=== PATIENT | male | born 1960 | race Caucasian/White ===

== ENCOUNTER 2021-05-15 14:45 | Inpatient (IN) | payer OTHER ==
[2021-05-15 15:56] VITALS: BMI 41.8
[2021-05-15] MEDS ORDERED: MAGNESIUM HYDROX 2400MG/30ML ORAL SUSPENSION 30 ML CUP PO PRN (18:58)
[2021-05-15] MEDS ORDERED: NICOTINE POLACRILEX 2 MG GUM BUC PRN (18:58)
[2021-05-15] MEDS ORDERED: MENTHOL/PHENOL 1 EACH UD MM PRN (18:58)
[2021-05-15] MEDS ORDERED: MAG HYDROX/AL HYDROX/SIMETH 30 ML UNIT-DOSE CUP PO PRN (18:58)
[2021-05-15] MEDS ORDERED: IBUPROFEN 400 MG TABLET (FP) PO PRN (18:58)
[2021-05-15] MEDS ORDERED: cloNIDine HCL 0.1 MG TABLET PO PRN (18:58)
[2021-05-15] MEDS ORDERED: ONDANSETRON *ODT* 4 MG TABLET SL PRN (18:58)
[2021-05-15] MEDS ORDERED: BISMUTH SUBSALICYLATE 524 MG/30 ML PO PRN (18:58)
[2021-05-15] MEDS ORDERED: MAGNESIUM CITRATE 300 ML BOTTLE PO PRN (18:58)
[2021-05-15] MEDS ORDERED: ACETAMINOPHEN 325 MG TABLET (FP) PO PRN ×2 (18:58)
[2021-05-15] MEDS ORDERED: methaDONE HCL 10 MG TABLET (FOR DETOX USE ONLY) PO ONE (20:15)
[2021-05-15] MEDS: THIAMINE HCL 100 MG TABLET (FP) PO SCH (21:14)
[2021-05-15] MEDS: MELATONIN 5 MG TABLETS PO SCH (21:14)
[2021-05-15] MEDS: ATORVASTATIN CA 20 MG TABLET (FP) PO SCH (21:14)
[2021-05-15] MEDS: hydrOXYzine PAMOATE 25 MG CAPSULE (FP) PO SCH (21:14)
[2021-05-16] MEDS: hydrOXYzine PAMOATE 25 MG CAPSULE (FP) PO SCH ×2 (06:31→11:20)
[2021-05-16] MEDS: LEVOTHYROXINE NA 112 MCG TABLET (FP) PO SCH (06:32)
[2021-05-16] MEDS ORDERED: methaDONE HCL 10 MG TABLET (FOR DETOX USE ONLY) ONE (09:24)
[2021-05-16] MEDS ORDERED: glipiZIDE 10 MG TABLET (FP) PO ONE (10:38)
[2021-05-16] MEDS: PRENATAL VITAMINS W/ FOLIC ACID TABLET (FP) PO SCH (10:44)
[2021-05-16] MEDS: LOSARTAN POTASSIUM 50 MG TABLET PO SCH (10:45)
[2021-05-16] MEDS: amLODIPine BESYLATE 10 MG TABLET (FP) PO SCH (10:45)
[2021-05-16] MEDS: ATENOLOL 50 MG TABLET (FP) PO SCH (10:45)
[2021-05-16] MEDS: glipiZIDE-XL 10 MG TAB.ER.24 (FP) PO SCH ×2 (11:20→13:15)
[2021-05-16 13:32] LABS: HEMATOCRIT 42.9 % (35.4-49); HEMOGLOBIN 14.6 GM/dL (11.7-16.9); MCH 31.1 pg (25.7-33.7); MCHC 34.1 g/dl (32.0-35.9); MEAN CELL VOLUME 91.3 fl (80-96); PLATELET COUNT 230 10^3/uL (134-434); RBC 4.69 M/mm3 (4.00-5.60); RDW 13.1 % (11.9-15.9)
[2021-05-16 13:35] LABS: CALCIUM 9.3 mg/dL (8.5-10.1)
[2021-05-16 13:36] LABS: ALBUMIN 3.6 g/dl (3.4-5.0); BLOOD UREA NITROGEN 14.8 mg/dL (7-18)
[2021-05-16 13:38] LABS: CREATININE 0.9 mg/dL (0.55-1.3)
[2021-05-16 13:39] LABS: BILIRUBIN,TOTAL 0.5 mg/dL (0.2-1)
[2021-05-16 13:40] LABS: TOT PROT 6.8 g/dl (6.4-8.2)
[2021-05-16] MEDS: glipiZIDE 10 MG TABLET (FP) PO SCH (17:50)
[2021-05-16] MEDS: THIAMINE HCL 100 MG TABLET (FP) PO SCH (22:42)
[2021-05-16] MEDS: ATORVASTATIN CA 20 MG TABLET (FP) PO SCH (22:42)
[2021-05-16] MEDS: MELATONIN 5 MG TABLETS PO SCH (22:42)
[2021-05-16] MEDS: METHOCARBAMOL 500 MG TABLET PO PRN (22:42)
[2021-05-16] MEDS: hydrOXYzine PAMOATE 25 MG CAPSULE (FP) PO PRN (22:42)
[2021-05-17] MEDS: LEVOTHYROXINE NA 112 MCG TABLET (FP) PO SCH (06:38)
[2021-05-17] MEDS: glipiZIDE 10 MG TABLET (FP) PO SCH ×2 (06:38→17:39)
[2021-05-17] MEDS ORDERED: methaDONE HCL 10 MG TABLET (FOR DETOX USE ONLY) PO ONE (10:00)
[2021-05-17] MEDS: amLODIPine BESYLATE 10 MG TABLET (FP) PO SCH (10:29)
[2021-05-17] MEDS: PRENATAL VITAMINS W/ FOLIC ACID TABLET (FP) PO SCH (10:29)
[2021-05-17] MEDS: LOSARTAN POTASSIUM 50 MG TABLET PO SCH (10:29)
[2021-05-17] MEDS: ATENOLOL 50 MG TABLET (FP) PO SCH (10:31)
[2021-05-17] MEDS: INSULIN SLIDING SCALE (NOVOLOG) 1 VIAL SQ SCH (17:41)
[2021-05-17] MEDS: MELATONIN 5 MG TABLETS PO SCH (22:04)
[2021-05-17] MEDS: ATORVASTATIN CA 20 MG TABLET (FP) PO SCH (22:04)
[2021-05-17] MEDS: THIAMINE HCL 100 MG TABLET (FP) PO SCH (22:04)
[2021-05-17] MEDS: hydrOXYzine PAMOATE 25 MG CAPSULE (FP) PO PRN (22:06)
[2021-05-18] MEDS: INSULIN SLIDING SCALE (NOVOLOG) 1 VIAL SQ SCH ×2 (06:43→17:34)
[2021-05-18] MEDS: LEVOTHYROXINE NA 112 MCG TABLET (FP) PO SCH (06:44)
[2021-05-18] MEDS: hydrOXYzine PAMOATE 25 MG CAPSULE (FP) PO PRN ×2 (06:44→23:17)
[2021-05-18] MEDS: glipiZIDE 10 MG TABLET (FP) PO SCH ×2 (06:44→17:34)
[2021-05-18] MEDS ORDERED: methaDONE HCL 10 MG TABLET (FOR DETOX USE ONLY) ONE (09:07)
[2021-05-18] MEDS: ATENOLOL 50 MG TABLET (FP) PO SCH (09:34)
[2021-05-18] MEDS: PRENATAL VITAMINS W/ FOLIC ACID TABLET (FP) PO SCH (09:34)
[2021-05-18] MEDS: LOSARTAN POTASSIUM 50 MG TABLET PO SCH (09:34)
[2021-05-18] MEDS: amLODIPine BESYLATE 10 MG TABLET (FP) PO SCH (09:34)
[2021-05-18] MEDS: METHOCARBAMOL 500 MG TABLET PO PRN (17:35)
[2021-05-18 21:28] VITALS: PULSE 77
[2021-05-18] MEDS: MELATONIN 5 MG TABLETS PO SCH (23:17)
[2021-05-18] MEDS: THIAMINE HCL 100 MG TABLET (FP) PO SCH (23:17)
[2021-05-18] MEDS: ATORVASTATIN CA 20 MG TABLET (FP) PO SCH (23:17)
[2021-05-19] MEDS: LEVOTHYROXINE NA 112 MCG TABLET (FP) PO SCH (06:32)
[2021-05-19] MEDS: glipiZIDE 10 MG TABLET (FP) PO SCH (06:33)
[2021-05-19] MEDS: INSULIN SLIDING SCALE (NOVOLOG) 1 VIAL SQ SCH (06:39)
[2021-05-19 08:56] VITALS: BP 147/95; TEMP 98
[2021-05-19] MEDS: LOSARTAN POTASSIUM 50 MG TABLET PO SCH (09:22)
[2021-05-19] MEDS: ATENOLOL 50 MG TABLET (FP) PO SCH (09:22)
[2021-05-19] MEDS: amLODIPine BESYLATE 10 MG TABLET (FP) PO SCH (09:22)
[2021-05-19] MEDS: PRENATAL VITAMINS W/ FOLIC ACID TABLET (FP) PO SCH (09:23)
[2021-05-19] MEDS ORDERED: methaDONE HCL 10 MG TABLET (FOR DETOX USE ONLY) PO ONE ×2 (10:00→10:20)
== END 2021-05-19 10:35 | disposition home or self-care (01) | DRG 773 ==
LOC: YASAS 14:45 → Y3N 19:27
PROVIDERS: ADMIT Allergy & Immunology; ATTEND Allergy & Immunology
PROC: HZ2ZZZZ Detoxification Services for Substance Abuse Treatment (ICD-10-PCS; principal; 2021-05-15)
DX: F11.23 Opioid dependence with withdrawal (principal); I10 Essential (primary) hypertension; E11.65 Type 2 diabetes mellitus with hyperglycemia; Z79.84 Long term (current) use of oral hypoglycemic drugs; E03.9 Hypothyroidism, unspecified; E66.01 Morbid (severe) obesity due to excess calories; Z68.41 Body mass index [BMI] 40.0-44.9, adult
CPT/HCPCS: 36415; 80053; 82962; 85027; 86780; 93005; 93010; C9803; J0735; U0003; U0005

== ENCOUNTER 2022-07-10 15:18 | Inpatient (IN) | payer OTHER ==
[2022-07-10] MEDS ORDERED: NALOXONE HCL 0.4 MG/ML VIAL IM PRN (21:18)
[2022-07-10] MEDS ORDERED: MAGNESIUM CITRATE 300 ML BOTTLE PO PRN (21:18)
[2022-07-10] MEDS ORDERED: MAGNESIUM HYDROX 2400MG/30ML ORAL SUSPENSION 30 ML CUP PO PRN (21:18)
[2022-07-10] MEDS ORDERED: BENZOCAINE/MENTHOL (CHLORASEPTIC ) LOZENGE MM PRN (21:18)
[2022-07-10] MEDS ORDERED: IBUPROFEN 400 MG TABLET (FP) PO PRN (21:18)
[2022-07-10] MEDS ORDERED: P-EPHED 60MG/TRIPROLIDI 2.5MG TABLET PO PRN (21:18)
[2022-07-10] MEDS ORDERED: BISMUTH SUBSALICYLATE 524 MG/30 ML PO PRN (21:18)
[2022-07-10] MEDS ORDERED: ACETAMINOPHEN 325 MG TABLET (FP) PO PRN ×2 (21:18)
[2022-07-10] MEDS ORDERED: methaDONE HCL 10 MG TABLET (FOR DETOX USE ONLY) PO ONE (21:18)
[2022-07-10] MEDS ORDERED: MAG HYDROX/AL HYDROX/SIMETH 30 ML UNIT-DOSE CUP PO PRN (21:18)
[2022-07-10] MEDS ORDERED: guaiFENesin 200 MG/10 ML 10 ML UNIT-DOSE CUPS PO PRN (21:18)
[2022-07-10] MEDS ORDERED: NALOXONE HCL (KLOXXADO) 8 MG SPRAY NS PRN (21:18)
[2022-07-10] MEDS ORDERED: DICYCLOMINE HCL 10 MG CAPSULE PO PRN (21:18)
[2022-07-10] MEDS ORDERED: LOPERAMIDE HCL 2 MG CAPSULE PO PRN (21:18)
[2022-07-10] MEDS ORDERED: IBUPROFEN 600 MG TABLET (FP) PO PRN (21:18)
[2022-07-10 21:54] VITALS: BMI 40.3
[2022-07-10] MEDS ORDERED: MELATONIN 5 MG TABLETS PO SCH (22:00)
[2022-07-10] MEDS ORDERED: methaDONE HCL 10 MG TABLET (FOR DETOX USE ONLY) ONE (23:21)
[2022-07-11] MEDS: THIAMINE HCL 100 MG TABLET (FP) PO SCH ×2 (01:21→22:32)
[2022-07-11] MEDS: METHOCARBAMOL 500 MG TABLET PO PRN (10:16)
[2022-07-11] MEDS: PRENATAL VITAMINS W/ FOLIC ACID TABLET (FP) PO SCH (10:16)
[2022-07-11] MEDS: cloNIDine HCL 0.1 MG TABLET PO PRN ×3 (10:17→22:36)
[2022-07-11 10:21] LABS: HEMATOCRIT 39.9 % (35.4-49); HEMOGLOBIN 14.1 GM/dL (11.7-16.9); MCH 32.1 pg (25.7-33.7); MCHC 35.3 g/dl (32.0-35.9); MEAN CELL VOLUME 90.8 fl (80-96); MEAN PLT VOLUME 7.7 fl (7.5-11.1); PLATELET COUNT 234 10^3/uL (134-434); RDW 13.3 % (11.9-15.9)
[2022-07-11] MEDS ORDERED: glipiZIDE-XL 10 MG TAB.ER.24 (FP) PO SCH (10:30)
[2022-07-11] MEDS ORDERED: glipiZIDE-XL 10 MG TAB.ER.24 (FP) PO ONE (12:00)
[2022-07-11] MEDS: LOSARTAN POTASSIUM 50 MG TABLET PO SCH (13:37)
[2022-07-11] MEDS: amLODIPine BESYLATE 10 MG TABLET (FP) PO SCH (13:37)
[2022-07-11] MEDS: LEVOTHYROXINE NA 112 MCG TABLET (FP) PO SCH (15:40)
[2022-07-11] MEDS: ATENOLOL 50 MG TABLET (FP) PO SCH (15:43)
[2022-07-11 21:31] LABS: CALCIUM 9.3 mg/dL (8.5-10.1)
[2022-07-11 21:32] LABS: ALBUMIN 3.8 g/dl (3.4-5.0); BLOOD UREA NITROGEN 12.4 mg/dL (7-18)
[2022-07-11 21:36] LABS: BILIRUBIN,TOTAL 0.6 mg/dL (0.2-1)
[2022-07-11 21:37] LABS: TOT PROT 6.9 g/dl (6.4-8.2)
[2022-07-11] MEDS: clonazePAM 0.5 MG ODT TABLETS SL PRN (22:36)
[2022-07-12] MEDS: LEVOTHYROXINE NA 112 MCG TABLET (FP) PO SCH (06:11)
[2022-07-12] MEDS: glipiZIDE-XL 10 MG TAB.ER.24 (FP) PO SCH (06:12)
[2022-07-12] MEDS: ATORVASTATIN CA 20 MG TABLET (FP) PO SCH (06:12)
[2022-07-12] MEDS ORDERED: methaDONE HCL 10 MG TABLET (FOR DETOX USE ONLY) PO ONE (10:00)
[2022-07-12] MEDS: METHOCARBAMOL 500 MG TABLET PO PRN (10:13)
[2022-07-12] MEDS: amLODIPine BESYLATE 10 MG TABLET (FP) PO SCH (10:13)
[2022-07-12] MEDS: PRENATAL VITAMINS W/ FOLIC ACID TABLET (FP) PO SCH (10:13)
[2022-07-12] MEDS: LOSARTAN POTASSIUM 50 MG TABLET PO SCH (10:13)
[2022-07-12] MEDS: ATENOLOL 50 MG TABLET (FP) PO SCH (10:14)
[2022-07-12] MEDS: clonazePAM 0.5 MG ODT TABLETS SL PRN (10:18)
[2022-07-12] MEDS: SUVOREXANT 10 MG TABLET PO PRN (22:11)
[2022-07-12] MEDS: cloNIDine HCL 0.1 MG TABLET PO PRN (22:11)
[2022-07-12] MEDS: THIAMINE HCL 100 MG TABLET (FP) PO SCH (22:11)
[2022-07-13] MEDS: LEVOTHYROXINE NA 112 MCG TABLET (FP) PO SCH (06:24)
[2022-07-13] MEDS: glipiZIDE-XL 10 MG TAB.ER.24 (FP) PO SCH (06:24)
[2022-07-13] MEDS: ATORVASTATIN CA 20 MG TABLET (FP) PO SCH (06:24)
[2022-07-13] MEDS: clonazePAM 0.5 MG ODT TABLETS SL PRN (10:13)
[2022-07-13] MEDS: amLODIPine BESYLATE 10 MG TABLET (FP) PO SCH (10:13)
[2022-07-13] MEDS: PRENATAL VITAMINS W/ FOLIC ACID TABLET (FP) PO SCH (10:13)
[2022-07-13] MEDS: ATENOLOL 50 MG TABLET (FP) PO SCH (10:13)
[2022-07-13] MEDS: METHOCARBAMOL 500 MG TABLET PO PRN (10:15)
[2022-07-13] MEDS: LOSARTAN POTASSIUM 50 MG TABLET PO SCH (11:50)
[2022-07-13] MEDS: THIAMINE HCL 100 MG TABLET (FP) PO SCH (22:28)
[2022-07-13] MEDS: SUVOREXANT 10 MG TABLET PO PRN (22:28)
[2022-07-14] MEDS: glipiZIDE-XL 10 MG TAB.ER.24 (FP) PO SCH (06:13)
[2022-07-14] MEDS: LEVOTHYROXINE NA 112 MCG TABLET (FP) PO SCH (06:13)
[2022-07-14] MEDS: ATORVASTATIN CA 20 MG TABLET (FP) PO SCH (06:13)
[2022-07-14] MEDS ORDERED: methaDONE HCL 10 MG TABLET (FOR DETOX USE ONLY) PO ONE (10:00)
[2022-07-14] MEDS: LOSARTAN POTASSIUM 50 MG TABLET PO SCH (10:11)
[2022-07-14] MEDS: ATENOLOL 50 MG TABLET (FP) PO SCH (10:11)
[2022-07-14] MEDS: PRENATAL VITAMINS W/ FOLIC ACID TABLET (FP) PO SCH (10:11)
[2022-07-14] MEDS: amLODIPine BESYLATE 10 MG TABLET (FP) PO SCH (10:11)
[2022-07-14 17:00] VITALS: RESP 18
[2022-07-14 19:31] LABS: EPI CELLS 15 /uL (0-25.1); HYALINE CASTS 9 /uL (0-3.1); PH,URINE 5.5 (5.0-8.0); URINE APPEARANCE TURBID; URINE BACTERIA 13 /uL (0-1359); URINE BILIRUBIN 1+ (NEGATIVE); URINE COLOR DK YELLOW; URINE GLUCOSE (UA) NEGATIVE (NEGATIVE); URINE KETONE TRACE (NEGATIVE); URINE LEUK ESTERASE NEGATIVE (NEGATIVE); URINE NITRITE NEGATIVE (NEGATIVE); URINE PROTEIN 1+ (NEGATIVE); URINE RBC 5 /uL (0-23.9); URINE UROBILINOGEN 0.2 mg/dL (0.2-1.0); URINE WBC 14 /uL (0-25.8)
[2022-07-14] MEDS: THIAMINE HCL 100 MG TABLET (FP) PO SCH (22:21)
[2022-07-14] MEDS: METHOCARBAMOL 500 MG TABLET PO PRN (22:21)
[2022-07-15 06:28] VITALS: TEMP 97.1
[2022-07-15] MEDS: ATORVASTATIN CA 20 MG TABLET (FP) PO SCH (06:48)
[2022-07-15] MEDS: glipiZIDE-XL 10 MG TAB.ER.24 (FP) PO SCH (06:48)
[2022-07-15] MEDS: LEVOTHYROXINE NA 112 MCG TABLET (FP) PO SCH (06:48)
[2022-07-15] MEDS: ATENOLOL 50 MG TABLET (FP) PO SCH (09:01)
[2022-07-15] MEDS: amLODIPine BESYLATE 10 MG TABLET (FP) PO SCH (09:02)
[2022-07-15] MEDS: PRENATAL VITAMINS W/ FOLIC ACID TABLET (FP) PO SCH (09:02)
[2022-07-15] MEDS: LOSARTAN POTASSIUM 50 MG TABLET PO SCH (09:02)
[2022-07-15 09:23] VITALS: BP 129/80; PULSE 73
== END 2022-07-15 09:35 | disposition home or self-care (01) | DRG 773 ==
LOC: YASAS 15:18 → Y6N 23:08
PROVIDERS: ADMIT Allergy & Immunology; ATTEND Surgery
PROC: HZ2ZZZZ Detoxification Services for Substance Abuse Treatment (ICD-10-PCS; principal; 2022-07-10)
DX: F11.23 Opioid dependence with withdrawal (principal); F19.280 Other psychoactive substance dependence with psychoactive substance-induced anxiety disorder; F19.282 Other psychoactive substance dependence with psychoactive substance-induced sleep disorder; I10 Essential (primary) hypertension; E78.5 Hyperlipidemia, unspecified; E03.9 Hypothyroidism, unspecified; E11.9 Type 2 diabetes mellitus without complications; Z79.84 Long term (current) use of oral hypoglycemic drugs; E66.01 Morbid (severe) obesity due to excess calories; Z68.41 Body mass index [BMI] 40.0-44.9, adult
CPT/HCPCS: 36415; 80053; 81003; 82962; 85027; 86780; C9803-CS; U0003; U0005

== ENCOUNTER 2022-08-28 11:25 | Inpatient (IN) | payer OTHER ==
[2022-08-28 12:12] VITALS: BMI 38.0
[2022-08-28] MEDS ORDERED: BENZOCAINE/MENTHOL (CHLORASEPTIC ) LOZENGE MM PRN (12:34)
[2022-08-28] MEDS ORDERED: MAGNESIUM HYDROX 2400MG/30ML ORAL SUSPENSION 30 ML CUP PO PRN (12:34)
[2022-08-28] MEDS ORDERED: IBUPROFEN 600 MG TABLET (FP) PO PRN (12:34)
[2022-08-28] MEDS ORDERED: DICYCLOMINE HCL 10 MG CAPSULE PO PRN (12:34)
[2022-08-28] MEDS ORDERED: BISMUTH SUBSALICYLATE 524 MG/30 ML PO PRN (12:34)
[2022-08-28] MEDS ORDERED: MAGNESIUM CITRATE 300 ML BOTTLE PO PRN (12:34)
[2022-08-28] MEDS ORDERED: LOPERAMIDE HCL 2 MG CAPSULE PO PRN (12:34)
[2022-08-28] MEDS ORDERED: ACETAMINOPHEN 325 MG TABLET (FP) PO PRN ×2 (12:34)
[2022-08-28] MEDS ORDERED: MAG HYDROX/AL HYDROX/SIMETH 30 ML UNIT-DOSE CUP PO PRN (12:34)
[2022-08-28] MEDS ORDERED: NALOXONE HCL (KLOXXADO) 8 MG SPRAY NS PRN (12:34)
[2022-08-28] MEDS ORDERED: NICOTINE 10 MG CARTRIDGE (INHALER) IH PRN (12:34)
[2022-08-28] MEDS ORDERED: IBUPROFEN 400 MG TABLET (FP) PO PRN (12:34)
[2022-08-28] MEDS ORDERED: hydrOXYzine PAMOATE 25 MG CAPSULE (FP) PO ONE (13:22)
[2022-08-28] MEDS: hydrOXYzine PAMOATE 25 MG CAPSULE (FP) PO PRN ×2 (13:25→22:33)
[2022-08-28 16:55] LABS: BLOOD UREA NITROGEN 16.2 mg/dL (7-18); CALCIUM 9.7 mg/dL (8.5-10.1)
[2022-08-28 16:57] LABS: HEMATOCRIT 42.2 % (35.4-49); HEMOGLOBIN 14.2 GM/dL (11.7-16.9); MCH 31.1 pg (25.7-33.7); MCHC 33.7 g/dl (32.0-35.9); MEAN CELL VOLUME 92.2 fl (80-96); MEAN PLT VOLUME 8.3 fl (7.5-11.1); PLATELET COUNT 320 10^3/uL (134-434); RBC 4.58 M/mm3 (4.00-5.60); RDW 13.9 % (11.9-15.9); WHITE BLOOD COUNT 10.6 K/mm3 (4.0-10.0)
[2022-08-28 16:58] LABS: CREATININE 1.2 mg/dL (0.55-1.3)
[2022-08-28 16:59] LABS: BILIRUBIN,TOTAL 0.6 mg/dL (0.2-1); TOT PROT 7.5 g/dl (6.4-8.2)
[2022-08-28] MEDS: INSULIN SLIDING SCALE (NOVOLOG) 1 VIAL SQ SCH ×2 (18:00→22:33)
[2022-08-28] MEDS: THIAMINE HCL 100 MG TABLET (FP) PO SCH (22:33)
[2022-08-28] MEDS: ATORVASTATIN CA 20 MG TABLET (FP) PO SCH (22:33)
[2022-08-28] MEDS: MELATONIN 5 MG TABLETS PO SCH (22:33)
[2022-08-29] MEDS: METHOCARBAMOL 500 MG TABLET PO PRN ×2 (02:03→10:16)
[2022-08-29] MEDS: ONDANSETRON *ODT* 4 MG TABLET SL PRN (02:57)
[2022-08-29] MEDS: hydrOXYzine PAMOATE 25 MG CAPSULE (FP) PO PRN ×2 (05:21→10:16)
[2022-08-29] MEDS: LEVOTHYROXINE NA 112 MCG TABLET (FP) PO SCH (07:26)
[2022-08-29] MEDS: INSULIN SLIDING SCALE (NOVOLOG) 1 VIAL SQ SCH ×5 (07:28→21:41)
[2022-08-29] MEDS ORDERED: INSULIN (NOVOLOG) ASPART 100 UNITS/ML 10ML VIAL ONE (07:53)
[2022-08-29] MEDS ORDERED: methaDONE HCL 10 MG TABLET (FOR DETOX USE ONLY) PO ONE (09:28)
[2022-08-29] MEDS: ATENOLOL 50 MG TABLET (FP) PO SCH (10:15)
[2022-08-29] MEDS: amLODIPine BESYLATE 10 MG TABLET (FP) PO SCH (10:16)
[2022-08-29] MEDS: LOSARTAN POTASSIUM 50 MG TABLET PO SCH (10:16)
[2022-08-29] MEDS: PRENATAL VITAMINS W/ FOLIC ACID TABLET (FP) PO SCH (10:17)
[2022-08-29] MEDS: cloNIDine HCL 0.1 MG TABLET PO PRN ×2 (10:18→21:51)
[2022-08-29] MEDS: MELATONIN 5 MG TABLETS PO SCH (21:51)
[2022-08-29] MEDS: ATORVASTATIN CA 20 MG TABLET (FP) PO SCH (21:51)
[2022-08-29] MEDS: THIAMINE HCL 100 MG TABLET (FP) PO SCH (21:51)
[2022-08-30] MEDS: ONDANSETRON *ODT* 4 MG TABLET SL PRN (02:11)
[2022-08-30] MEDS: LEVOTHYROXINE NA 112 MCG TABLET (FP) PO SCH (06:34)
[2022-08-30] MEDS: INSULIN SLIDING SCALE (NOVOLOG) 1 VIAL SQ SCH ×4 (08:16→22:17)
[2022-08-30] MEDS: cloNIDine HCL 0.1 MG TABLET PO PRN (10:16)
[2022-08-30] MEDS: PRENATAL VITAMINS W/ FOLIC ACID TABLET (FP) PO SCH (10:16)
[2022-08-30] MEDS: ATENOLOL 50 MG TABLET (FP) PO SCH (10:17)
[2022-08-30] MEDS: amLODIPine BESYLATE 10 MG TABLET (FP) PO SCH (10:17)
[2022-08-30] MEDS: LOSARTAN POTASSIUM 50 MG TABLET PO SCH (10:17)
[2022-08-30] MEDS: METHOCARBAMOL 500 MG TABLET PO PRN (10:17)
[2022-08-30] MEDS: hydrOXYzine PAMOATE 25 MG CAPSULE (FP) PO PRN (10:17)
[2022-08-30] MEDS: glipiZIDE-XL 10 MG TAB.ER.24 (FP) PO SCH (16:47)
[2022-08-30] MEDS: ATORVASTATIN CA 20 MG TABLET (FP) PO SCH (22:16)
[2022-08-30] MEDS: THIAMINE HCL 100 MG TABLET (FP) PO SCH (22:16)
[2022-08-30] MEDS: MELATONIN 5 MG TABLETS PO SCH (22:16)
[2022-08-31] MEDS: glipiZIDE-XL 10 MG TAB.ER.24 (FP) PO SCH ×2 (06:17→17:24)
[2022-08-31] MEDS: LEVOTHYROXINE NA 112 MCG TABLET (FP) PO SCH (06:17)
[2022-08-31] MEDS: INSULIN SLIDING SCALE (NOVOLOG) 1 VIAL SQ SCH ×4 (06:21→22:33)
[2022-08-31] MEDS ORDERED: methaDONE HCL 10 MG TABLET (FOR DETOX USE ONLY) PO ONE (10:00)
[2022-08-31] MEDS: METHOCARBAMOL 500 MG TABLET PO PRN (10:24)
[2022-08-31] MEDS: amLODIPine BESYLATE 10 MG TABLET (FP) PO SCH (10:24)
[2022-08-31] MEDS: hydrOXYzine PAMOATE 25 MG CAPSULE (FP) PO PRN ×2 (10:24→22:34)
[2022-08-31] MEDS: LOSARTAN POTASSIUM 50 MG TABLET PO SCH (10:24)
[2022-08-31] MEDS: PRENATAL VITAMINS W/ FOLIC ACID TABLET (FP) PO SCH (10:24)
[2022-08-31] MEDS: ATENOLOL 50 MG TABLET (FP) PO SCH (10:24)
[2022-08-31] MEDS: ATORVASTATIN CA 20 MG TABLET (FP) PO SCH (22:33)
[2022-08-31] MEDS: MELATONIN 5 MG TABLETS PO SCH (22:33)
[2022-08-31] MEDS: THIAMINE HCL 100 MG TABLET (FP) PO SCH (22:33)
[2022-09-01] MEDS: INSULIN SLIDING SCALE (NOVOLOG) 1 VIAL SQ SCH ×4 (06:55→22:24)
[2022-09-01] MEDS: LEVOTHYROXINE NA 112 MCG TABLET (FP) PO SCH (06:55)
[2022-09-01] MEDS: glipiZIDE-XL 10 MG TAB.ER.24 (FP) PO SCH (06:55)
[2022-09-01] MEDS: ATENOLOL 50 MG TABLET (FP) PO SCH (10:26)
[2022-09-01] MEDS: PRENATAL VITAMINS W/ FOLIC ACID TABLET (FP) PO SCH (10:27)
[2022-09-01] MEDS: METHOCARBAMOL 500 MG TABLET PO PRN (10:27)
[2022-09-01] MEDS: amLODIPine BESYLATE 10 MG TABLET (FP) PO SCH (10:27)
[2022-09-01] MEDS: LOSARTAN POTASSIUM 50 MG TABLET PO SCH (11:35)
[2022-09-01] MEDS: glipiZIDE-XL 5 MG TAB.ER.24 PO SCH (18:33)
[2022-09-01] MEDS: MELATONIN 5 MG TABLETS PO SCH (22:24)
[2022-09-01] MEDS: ATORVASTATIN CA 20 MG TABLET (FP) PO SCH (22:24)
[2022-09-01] MEDS: THIAMINE HCL 100 MG TABLET (FP) PO SCH (22:24)
[2022-09-02] MEDS: glipiZIDE-XL 5 MG TAB.ER.24 PO SCH (06:18)
[2022-09-02] MEDS: INSULIN SLIDING SCALE (NOVOLOG) 1 VIAL SQ SCH (06:18)
[2022-09-02] MEDS: LEVOTHYROXINE NA 112 MCG TABLET (FP) PO SCH (06:20)
[2022-09-02 09:23] VITALS: BP 124/79; PULSE 78; RESP 16; TEMP 97.8
[2022-09-02] MEDS: PRENATAL VITAMINS W/ FOLIC ACID TABLET (FP) PO SCH (09:35)
[2022-09-02] MEDS: LOSARTAN POTASSIUM 50 MG TABLET PO SCH (09:35)
[2022-09-02] MEDS: ATENOLOL 50 MG TABLET (FP) PO SCH (09:35)
[2022-09-02] MEDS: amLODIPine BESYLATE 10 MG TABLET (FP) PO SCH (09:35)
[2022-09-02] MEDS ORDERED: methaDONE HCL 10 MG TABLET (FOR DETOX USE ONLY) PO ONE (10:00)
== END 2022-09-02 10:55 | disposition home or self-care (01) | DRG 773 ==
LOC: YASAS 11:25 → UNDOADMIN 13:49 → Y6N 13:49
PROVIDERS: ADMIT Allergy & Immunology; ATTEND Surgery
PROC: HZ2ZZZZ Detoxification Services for Substance Abuse Treatment (ICD-10-PCS; principal; 2022-08-28)
DX: F11.23 Opioid dependence with withdrawal (principal); F19.24 Other psychoactive substance dependence with psychoactive substance-induced mood disorder; F32.A Depression, unspecified; E78.5 Hyperlipidemia, unspecified; I10 Essential (primary) hypertension; E03.9 Hypothyroidism, unspecified; E11.9 Type 2 diabetes mellitus without complications; Z79.84 Long term (current) use of oral hypoglycemic drugs; E66.9 Obesity, unspecified; Z68.41 Body mass index [BMI] 40.0-44.9, adult
CPT/HCPCS: 36415; 80053; 82962; 85027; 86780; C9803-CS; Q0162; U0003; U0005